=== PATIENT | male | born 1945 | race Two or more races ===

== ENCOUNTER 2024-03-23 13:17 | Inpatient (IN) | payer MEDICARE, OTHER ==
[~2024-03-23] VITALS: Ht 170.2 cm; Wt 126.8 kg
[2024-03-23 14:43] LABS: Alanine Aminotransferase 27 U/L (7-40); Albumin 4.7 g/dL (3.2-4.8); Alkaline Phosphatase 56 U/L (46-116); Anion Gap 11 (5-15); Aspartate Aminotransferase 14 U/L (13-40); BUN/Creatinine Ratio 10.7 (10.0-20.0); Bilirubin, Total 0.9 mg/dL (0.2-1.0); Blood Urea Nitrogen 8 mg/dL (9-23); Calcium 9.7 mg/dL (8.7-10.4); Carbon Dioxide 25 mmol/L (20-30); Chloride 97 mmol/L (98-107); Glucose 93 mg/dL (74-106); Magnesium 1.8 mg/dL (1.6-2.6); Potassium 3.1 mmol/L (3.5-5.1); Sodium 133 mmol/L (136-145); Total Protein 7.7 g/dL (5.7-8.2)
[2024-03-23 15:27] LABS: Urine Bacteria MANY /hpf (None Seen); Urine Blood TRACE /uL (Negative); Urine Clarity Clear (Clear); Urine Color Light-Yellow (Yellow); Urine Protein, UAD 2+ (Negative); Urine Specific Gravity 1.014 (1.001-1.035); Urine Urobilinogen Normal (Negative); Urine WBC 37 /hpf (0 - 3)
[2024-03-23 18:35] VITALS: PULSE 79; RESP 16; O2SAT 94
[2024-03-23] MEDS: cefTRIAXone 1GM/50ML D5W 50 ML IV ONE (18:40)
[2024-03-23] MEDS: DexAMETHasone SOD PHOS 10MG/1ML VIAL INJ IV ONE (18:40)
[2024-03-23] MEDS: POTASSIUM CHL 20 Meq TABLET PO ONE (18:40)
[2024-03-23] MEDS: FUROSEMIDE 100 MG/10ML VIAL IV ONE (18:41)
[2024-03-23 18:43] LABS: Basophils # (auto) 0 10 ^3/uL (0-0.2); Basophils % (auto) 0.3 % (0.0-2.0); Eosinophils # (auto) 0.2 10 ^3/uL (0-0.8); Eosinophils % (auto) 2.2 % (0.0-7.0); Hematocrit 44.2 % (41.0-53.0); Hemoglobin 15.3 g/dL (13.5-17.5); Lymphocytes # (auto) 2.7 10 ^3/uL (0.4-5.4); Lymphocytes % (auto) 28.1 % (10.0-50.0); Mean Corpuscular Hgb Conc. 34.7 g/dL (32.0-36.0); Mean Corpuscular Volume 89.3 fL (80.0-100.0); Monocytes # (auto) 0.6 10 ^3/uL (0-1.3); Monocytes % (auto) 6.6 % (0.0-12.0); Neutrophils # (auto) 6.1 10 ^3/uL (1.6-8.6); Neutrophils % (auto) 62.8 % (37.0-80.0); Nucleated Red Blood Cells % 0.1 %; Platelet Count (auto) 375 10^3/uL (140-450); Red Blood Cells 4.95 10^6/uL (4.5-5.90); Red Cell Distribution Width 13.5 % (11.8-14.3); White Blood Cell 9.7 10^3/uL (4.4-10.8)
[2024-03-23] MEDS: SODIUM CHLORIDE 0.9% 1,000 ML IV ONE (18:50)
[2024-03-23 18:55] LABS: Base Excess -0.8 mmol/L (-2.0-3.0)
[2024-03-23 21:21] LABS: COVID19 ANTIGEN SOFIA FIA POSITIVE (NEGATIVE)
[2024-03-23] MEDS ORDERED: HYDROcodone-ACET 5/325MG TAB PO PRN (22:30)
[2024-03-23] MEDS ORDERED: DEXTROSE (50%) 50ML SYRG IV PRN (22:30)
[2024-03-23] MEDS ORDERED: ACETAMINOPHEN 500 MG TAB PO PRN (22:30)
[2024-03-23] MEDS ORDERED: ONDANSETRON HCL 4 MG/2 ML VIAL IV PRN (22:30)
[2024-03-23] MEDS ORDERED: DOCUSATE SOD 100 MG CAP PO PRN (22:30)
[2024-03-23] MEDS ORDERED: NITROGLYCERIN 0.4 MG SL TAB SL PRN (22:30)
[2024-03-23] MEDS ORDERED: MORPHINE SULFATE INJ 2 MG/ml SYRG IV PRN (22:30)
[2024-03-24] VITALS (12 sets, daily range): BP systolic 133–148; BP diastolic 53–63; PULSE 67–96; RESP 16–21; TEMP 97.7–98.7; O2SAT 91–97
[2024-03-24] MEDS: POTASSIUM CHL 20MEQ/100ML 100 ML IV SCH ×2 (00:30→06:21)
[2024-03-24] MEDS: SODIUM CHLORIDE 0.9% 1,000 ML IV SCH (01:28)
[2024-03-24] MEDS ORDERED: METF-370 PO (01:52)
[2024-03-24] MEDS ORDERED: AMLO1TAB22 PO (01:52)
[2024-03-24] MEDS ORDERED: CARV25TA55 PO (01:52)
[2024-03-24] MEDS ORDERED: SEMA2INJ3 SC (01:52)
[2024-03-24] MEDS ORDERED: ASPI-498 OR (01:52)
[2024-03-24] MEDS ORDERED: LOSA-535 PO (01:52)
[2024-03-24] MEDS ORDERED: SIMV20TA20 PO (01:52)
[2024-03-24] MEDS: ACCU-CHEK COMFORT CURVE STRIP VI SCH (06:06)
[2024-03-24] MEDS: InsuLIN REG 1unit/0.01ml Soln (100units/ml) SC SCH (06:07)
[2024-03-24 06:33] LABS: Basophils # (auto) 0 10 ^3/uL (0-0.2); Basophils % (auto) 0.1 % (0.0-2.0); Eosinophils # (auto) 0 10 ^3/uL (0-0.8); Hematocrit 44.4 % (41.0-53.0); Hemoglobin 15.4 g/dL (13.5-17.5); Lymphocytes # (auto) 1.4 10 ^3/uL (0.4-5.4); Lymphocytes % (auto) 23.2 % (10.0-50.0); Mean Corpuscular Hemoglobin 31.2 pg (28.0-32.0); Mean Corpuscular Hgb Conc. 34.8 g/dL (32.0-36.0); Mean Corpuscular Volume 89.9 fL (80.0-100.0); Monocytes # (auto) 0.1 10 ^3/uL (0-1.3); Monocytes % (auto) 1.6 % (0.0-12.0); Neutrophils # (auto) 4.4 10 ^3/uL (1.6-8.6); Neutrophils % (auto) 75.1 % (37.0-80.0); Platelet Count (auto) 359 10^3/uL (140-450); Red Blood Cells 4.94 10^6/uL (4.5-5.90); Red Cell Distribution Width 13.4 % (11.8-14.3); White Blood Cell 5.9 10^3/uL (4.4-10.8)
[2024-03-24 06:48] LABS: Alanine Aminotransferase 24 U/L (7-40); Albumin 4.7 g/dL (3.2-4.8); Alkaline Phosphatase 55 U/L (46-116); Anion Gap 14 (5-15); Aspartate Aminotransferase 12 U/L (13-40); BUN/Creatinine Ratio 14.1 (10.0-20.0); Blood Urea Nitrogen 10 mg/dL (9-23); Calcium 9.6 mg/dL (8.7-10.4); Carbon Dioxide 22 mmol/L (20-30); Chloride 100 mmol/L (98-107); Glucose 152 mg/dL (74-106); Potassium 3.7 mmol/L (3.5-5.1); Sodium 136 mmol/L (136-145)
[2024-03-24 06:49] LABS: Bilirubin, Total 0.7 mg/dL (0.2-1.0); Total Protein 7.6 g/dL (5.7-8.2)
[2024-03-24] MEDS: BUDESONIDE (INHALATION) 180 MCG IH IN SCH (08:47)
[2024-03-24] MEDS: ALBUTEROL SULF HFA 90MCG INH 200DOSE IN PRN (08:48)
[2024-03-24] MEDS: DOXYCYCLINE 100 MG TAB/CAP PO SCH (09:16)
[2024-03-24] MEDS: MULTIPLE VITAMIN TAB PO SCH (09:16)
[2024-03-24] MEDS: ZINC SULFATE 220mg CAP or TAB PO SCH (09:16)
[2024-03-24] MEDS: DexAMETHasone SOD PHOS 10MG/1ML VIAL INJ IV SCH (09:17)
[2024-03-24] MEDS: ENOXAPARIN SOD 40 MG/0.4 ML SYRINGE SC SCH (09:17)
[2024-03-24] MEDS: cefTRIAXone 1GM/50ML D5W 50 ML IV SCH (17:48)
[2024-03-24] MEDS: ATORVASTATIN 20 MG TAB PO SCH (21:10)
[2024-03-25] VITALS (13 sets, daily range): BP systolic 120–151; BP diastolic 57–75; PULSE 64–79; RESP 16–21; TEMP 97.3–97.6; O2SAT 92–98
[2024-03-25] MEDS ORDERED: DEXT20CA PO (14:14)
[2024-03-25] MEDS ORDERED: VILA40TA PO (14:14)
[2024-03-26] VITALS (11 sets, daily range): BP systolic 123–153; BP diastolic 60–73; PULSE 64–78; RESP 16–20; TEMP 97.4–98.4; O2SAT 93–98
[2024-03-26] MEDS: POTASSIUM CHLORIDE 8 MEQ TAB PO ONE (14:59)
[2024-03-26] MEDS: FUROSEMIDE 20 MG TAB PO SCH (15:00)
[2024-03-27] VITALS (12 sets, daily range): BP systolic 128–148; BP diastolic 56–75; PULSE 65–90; RESP 16–20; TEMP 97.5–98.2; O2SAT 93–97
[2024-03-27 06:51] LABS: Basophils # (auto) 0 10 ^3/uL (0-0.2); Basophils % (auto) 0.3 % (0.0-2.0); Eosinophils # (auto) 0.1 10 ^3/uL (0-0.8); Eosinophils % (auto) 1.3 % (0.0-7.0); Hematocrit 42.5 % (41.0-53.0); Hemoglobin 14.7 g/dL (13.5-17.5); Lymphocytes # (auto) 2.3 10 ^3/uL (0.4-5.4); Lymphocytes % (auto) 29.9 % (10.0-50.0); Mean Corpuscular Hemoglobin 30.8 pg (28.0-32.0); Mean Corpuscular Hgb Conc. 34.6 g/dL (32.0-36.0); Monocytes # (auto) 0.8 10 ^3/uL (0-1.3); Monocytes % (auto) 10.8 % (0.0-12.0); Neutrophils # (auto) 4.4 10 ^3/uL (1.6-8.6); Neutrophils % (auto) 57.7 % (37.0-80.0); Nucleated Red Blood Cells % 0.2 %; Platelet Count (auto) 376 10^3/uL (140-450); Red Blood Cells 4.77 10^6/uL (4.5-5.90); Red Cell Distribution Width 13.5 % (11.8-14.3); White Blood Cell 7.6 10^3/uL (4.4-10.8)
[2024-03-27 07:07] LABS: Alanine Aminotransferase 71 U/L (7-40); Alkaline Phosphatase 58 U/L (46-116); Anion Gap 7 (5-15); Aspartate Aminotransferase 21 U/L (13-40); Blood Urea Nitrogen 18 mg/dL (9-23); Calcium 9.7 mg/dL (8.7-10.4); Carbon Dioxide 28 mmol/L (20-30); Chloride 103 mmol/L (98-107); Glucose 116 mg/dL (74-106); Sodium 138 mmol/L (136-145)
[2024-03-27 07:08] LABS: Albumin 4.3 g/dL (3.2-4.8); Bilirubin, Total 0.6 mg/dL (0.2-1.0); Total Protein 6.7 g/dL (5.7-8.2)
[2024-03-28] VITALS (7 sets, daily range): BP systolic 130–141; BP diastolic 64–72; PULSE 18–78; RESP 17–19; TEMP 97.5–98.1; O2SAT 94–97
== END 2024-03-28 15:30 | disposition home or self-care (01) | DRG 177 ==
LOC: ER 13:17 → TELE 22:33 → TELE-WESTW 23:40
PROVIDERS: ADMIT Nurse Practitioner Family; ATTEND Nurse Practitioner Acute Care
DX: U07.1 COVID-19 (principal); J12.82 Pneumonia due to coronavirus disease 2019; N39.0 Urinary tract infection, site not specified; Z68.42 Body mass index [BMI] 45.0-49.9, adult; E87.6 Hypokalemia; I10 Essential (primary) hypertension; J06.9 Acute upper respiratory infection, unspecified; R09.02 Hypoxemia; E11.9 Type 2 diabetes mellitus without complications; E66.01 Morbid (severe) obesity due to excess calories; I89.0 Lymphedema, not elsewhere classified; E78.5 Hyperlipidemia, unspecified; R79.89 Other specified abnormal findings of blood chemistry; Z83.3 Family history of diabetes mellitus; Z82.49 Family history of ischemic heart disease and other diseases of the circulatory system
CPT/HCPCS: 36415; 36600; 71045; 71046; 80053; 81001; 82728; 82805; 82962; 83605; 83615; 83735; 83880; 84484; 85025; 85379; 86141; 87086; 87088; 87186; 87426; 93005; 94640; 96374; 96375; G0378; J1100; J1815; J3480